=== PATIENT | female | born 1950 | race Caucasian/White ===

== ENCOUNTER 2022-12-01 12:32 | Outpatient (CLI) | payer MEDICARE | END 2022-12-01 12:33 | disposition home or self-care (01) | LOC: CSHMRI 12:32 | PROVIDERS: ATTEND Orthopaedic Surgery Hand Surgery | DX: S63.591A Other specified sprain of right wrist, initial encounter (principal); M25.431 Effusion, right wrist; S56.511A Strain of other extensor muscle, fascia and tendon at forearm level, right arm, initial encounter ==